=== PATIENT | male | born 1995 | race Caucasian/White ===

== ENCOUNTER 2016-11-02 09:00 | Outpatient (RCR) | payer OTHER | END 2016-11-03 | disposition home or self-care (01) | LOC: PT 09:00 | PROVIDERS: ATTEND Orthopaedic Surgery | DX: S82.301D Unspecified fracture of lower end of right tibia, subsequent encounter for closed fracture with routine healing (principal); S82.831D Other fracture of upper and lower end of right fibula, subsequent encounter for closed fracture with routine healing; W20.8XXD Other cause of strike by thrown, projected or falling object, subsequent encounter; R26.89 Other abnormalities of gait and mobility; Y93.H3 Activity, building and construction; Y92.61 Building [any] under construction as the place of occurrence of the external cause; Y99.0 Civilian activity done for income or pay ==

== ENCOUNTER 2017-01-14 09:00 | Outpatient (RCR) | payer OTHER | END 2017-01-18 12:31 | disposition home or self-care (01) | LOC: PT 09:00 | PROVIDERS: ATTEND Orthopaedic Surgery | DX: S82.301D Unspecified fracture of lower end of right tibia, subsequent encounter for closed fracture with routine healing (principal); S82.831D Other fracture of upper and lower end of right fibula, subsequent encounter for closed fracture with routine healing; W20.8XXD Other cause of strike by thrown, projected or falling object, subsequent encounter; R26.89 Other abnormalities of gait and mobility; Y93.H3 Activity, building and construction; Y92.61 Building [any] under construction as the place of occurrence of the external cause; Y99.0 Civilian activity done for income or pay ==